=== PATIENT | female | born 1995 | race Caucasian/White ===

== ENCOUNTER 2016-11-16 23:38 | Emergency (ER) | payer OTHER ==
[~2016-11-16 23:38] MED LIST: ACYCLOVIR PO; BIRTH CONTROL PILL PO; DICYCLOMINE HCL20 MG PO; E MYCIN OP; EXCEDRIN MIGRAI1 TA2 PO; FOCALIN XR PO; FOCALIN XR10 MG PO; IBUPROFEN PO; IBUPROFEN800 MG PO; MAGIC MOUTHWASH PO; MOTRIN600 M1 PO; ORTHO TRI-7 DAYS X PO; PEPCID AC20 MG PO; PHENERGAN PO; PHENERGAN25 MG PO; PROZAC PO; PROZAC10 MG PO; TYLENOL #3 PO; [UNRECOGNIZED DRUG - OTHER] TOP
[2016-11-17 01:55] LABS: URINE SOURCE CLEAN CATCH
[2016-11-17 02:11] LABS: AMPHETAMINE NEG (NEG); BARBITURATES NEG (NEG); BENZODIAZEPINES NEG (NEG); COCAINE NEG (NEG); MARIJUANA POS (NEG); OPIATES NEG (NEG); TRICYCLIC ANTIDEPRESSANTS NEG (NEG); U METHADONE NEG (NEG)
[2016-11-17 02:16] LABS: CULTURE INDICATED? NO; URBCS1 AUWI 50-100 /[HPF] (0-2); URINE APPEARANCE CLEAR; URINE BACTERIA AUWI NEG (NEGATIVE); URINE BILIRUBIN NEG (NEG); URINE BLOOD 3+ (NEG); URINE COLOR YELLOW; URINE GLUCOSE NEG (NEG); URINE KETONE NEG (NEG); URINE LEUKOCYTE ESTERASE TRACE (NEG); URINE NITRATE NEG (NEG); URINE PROTEIN NEG (NEG); URINE SPECIFIC GRAVITY 1.027 (1.003-1.035); URINE SQUAMOUS EPITHELIAL CELL OCC /[HPF]; UWBCS1 AUWI 0-2 (0-5)
== END 2016-11-17 03:25 | disposition home or self-care (01) ==
LOC: CED 23:38
PROVIDERS: Student in an Organized Health Care Education/Training Program
DX: N94.0 Mittelschmerz (principal); F98.8 Other specified behavioral and emotional disorders with onset usually occurring in childhood and adolescence; F17.200 Nicotine dependence, unspecified, uncomplicated; Z90.89 Acquired absence of other organs
CPT/HCPCS: 80307; 81003; 84703; 96372; 99284; J1885

== ENCOUNTER 2016-12-18 15:36 | Emergency (ER) | payer OTHER ==
--- NOTE | ~2016-12-18 | EKG ---
PATIENT: JESUS ALBERTO GONZALEZ UNIT #: [id number] Ventricular Rate: 58 BPM Atrial Rate: 58 BPM P-R Interval: 166 ms QRS Duration: 82 ms Q-T Interval: 406 ms QTC Calculation(Bezet): 398 ms P [place]: 39 degrees Calculated R [place]: 35 degrees Calculated T [place]: 24 degrees Diagnosis Line: Sinus bradycardia with sinus arrhythmia Diagnosis Line: Otherwise normal ECG Diagnosis Line: When compared with ECG of 04-JUL-2016 21:45, Diagnosis Line: No significant change was found Diagnosis Line: Confirmed by MARY HARRIS MD ([id number]) on Diagnosis Line: 12/19/2016 10:58:43 AM INTERPRETING MD: KIMBERLY BOLAND
[2016-12-18 16:37] LABS: BASOPHIL% 0.6 % (0-2.5); EOSINOPHIL# 0.3 X10e3 (0-0.7); EOSINOPHIL% 3.8 % (0.0-7.0); HEMATOCRIT 38.9 % (35.0-45.0); HEMOGLOBIN 12.9 gm/dL (12.0-16.0); LYMPHOCYTE# 2.3 X10e3 (1.0-3.5); MEAN CELL VOLUME 89.4 FL (83-96); MEAN CORPUSCULAR HEMOGLOBIN 29.7 PG (28-34); MEAN CORPUSCULAR HGB CONC 33.2 g/dL (30-36); MEAN PLATELET VOLUME 8.8 FL (6.5-11.5); MONOCYTE# 0.4 X10e3 (0-1.0); MONOCYTE% 5.9 % (3.0-12.0); NEUTROPHIL# 4.2 X10e3 (1.5-7.1); NEUTROPHIL% 57.7 % (40-75); PLATELET COUNT 278 X10e3 (140-420); RED BLOOD COUNT 4.36 X10e (3.90-5.30); RED CELL DISTRIBUTION WIDTH 13.1 % (11.0-15.5); WHITE BLOOD COUNT 7.3 X10e3 (4.0-10.5)
[2016-12-18 16:42] LABS: DIFF IND NO
[2016-12-18 16:55] LABS: BUN/CREATININE RATIO 12.85; CALCIUM SERUM 8.2 mg/dL (8.4-10.2); CREATININE SERUM 0.7 mg/dL (0.6-1.4); GLOM FILT RATE Estimated 122.1 mL/min (>60); POTASSIUM 3.8 mmol/L (3.5-5.1)
[2016-12-18 18:10] LABS: URINE SOURCE CLEAN CATCH
[2016-12-18 18:14] LABS: URINE APPEARANCE CLEAR; URINE BILIRUBIN NEG (NEG); URINE BLOOD NEG (NEG); URINE COLOR YELLOW; URINE GLUCOSE NEG (NORM); URINE KETONE NEG (NEG); URINE LEUKOCYTE ESTERASE NEG (NEG); URINE NITRATE NEG (NEG); URINE PROTEIN NEG (NEG); URINE SPECIFIC GRAVITY 1.015 (1.003-1.035); URINE UROBILINOGEN 0.2 MG/DL (NORM)
[2016-12-18 18:20] LABS: MICRO INDICATED? NO
== END 2016-12-18 18:32 | disposition home or self-care (01) ==
LOC: SED 15:36
PROVIDERS: Emergency Medicine
DX: E86.0 Dehydration (principal); F17.210 Nicotine dependence, cigarettes, uncomplicated
CPT/HCPCS: 36415; 80048; 81003; 82947; 84703; 85025; 93005; 96360; 99285

== ENCOUNTER 2016-12-22 02:55 | Emergency (ER) | payer OTHER ==
[~2016-12-22] VITALS: Ht 160 cm; Wt 118.8 kg
[2016-12-22 03:52] LABS: URINE SOURCE CLEAN CATCH
[2016-12-22 03:55] LABS: URINE APPEARANCE SL CLOUDY; URINE BILIRUBIN NEG (NEG); URINE BLOOD NEG (NEG); URINE COLOR YELLOW; URINE GLUCOSE NEG (NORM); URINE KETONE NEG (NEG); URINE LEUKOCYTE ESTERASE NEG (NEG); URINE NITRATE NEG (NEG); URINE PH 5.5 (5-8); URINE PROTEIN NEG (NEG); URINE SPECIFIC GRAVITY 1.025 (1.003-1.035); URINE UROBILINOGEN 0.2 MG/DL (NORM)
[2016-12-22 03:57] LABS: MICRO INDICATED? NO
[2016-12-22 04:14] LABS: BUN/CREATININE RATIO 14.28; CALCIUM SERUM 8.5 mg/dL (8.4-10.2); CREATININE SERUM 0.7 mg/dL (0.6-1.4); GLOM FILT RATE Estimated 122.1 mL/min (>60); POTASSIUM 3.7 mmol/L (3.5-5.1)
== END 2016-12-22 05:27 | disposition home or self-care (01) ==
LOC: SED 02:55
PROVIDERS: Emergency Medicine
DX: G43.909 Migraine, unspecified, not intractable, without status migrainosus (principal); F17.200 Nicotine dependence, unspecified, uncomplicated
CPT/HCPCS: 36415; 80048; 81003; 96374; 96375; 99284; J0780; J1200; J1885